=== PATIENT | female | born 1995 | race Caucasian/White ===

== ENCOUNTER 2018-08-06 09:28 | Outpatient (CLI) | payer OTHER, SELFPAY ==
[2018-08-06 11:12] LABS: HCT 37.9 % (36.0-46.0); HGB 12.6 g/dL (12.0-15.5); Mean Corp. HGB Concentration 33.2 g/dL (32.0-36.0); Mean Corpuscular Hemoglobin 28.1 pg (27.0-33.0); Mean Corpuscular Volume 84.6 fL (80-95); Mean Platelet Volume 10.3 fL (8.0-11.0); Platelet Count 284 x1000/uL (130-400); RBC 4.48 m/cumm (4.00-5.20); RBC Distribution Width 12.9 % (11.7-14.6); White Blood Cell Count 5.77 k/cumm (4.4-10.8)
[2018-08-06 11:34] LABS: TSH (W/Ref FT4) 2.48 uIU/mL (0.358-3.74)
== END 2018-08-06 09:48 ==
PROVIDERS: PCP Family Medicine; Visit Provider Family Medicine
DX: R53.83 Other fatigue (principal)
CPT/HCPCS: 36415; 85027; 84443

== ENCOUNTER 2019-06-18 08:21 | Outpatient (CLI) | payer OTHER, SELFPAY ==
[2019-06-18 11:23] LABS: HCT 40.1 % (36.0-46.0); HGB 13.1 g/dL (12.0-15.5); Mean Corp. HGB Concentration 32.7 g/dL (32.0-36.0); Mean Corpuscular Hemoglobin 27.8 pg (27.0-33.0); Mean Corpuscular Volume 85.1 fL (80-95); Mean Platelet Volume 10.2 fL (8.0-11.0); Platelet Count 323 x1000/uL (130-400); RBC 4.71 m/cumm (4.00-5.20); RBC Distribution Width 13.5 % (11.7-14.6); White Blood Cell Count 6.64 k/cumm (4.4-10.8)
[2019-06-18 11:34] LABS: Mono Screening Negative (Negative)
[2019-06-18 12:09] LABS: Iron 73 ug/dL (50-175); Total Iron Binding Capacity 328 ug/dL (250-450); Transferrin Sat 22 % (15-50)
[2019-06-18 12:32] LABS: Calculated LDL 109 mg/dL; Cholesterol 173 mg/dL (50-200); Ferritin 21 ng/mL (8-388); HDL Cholesterol 54 mg/dL (40-60); Triglyceride 52 mg/dL (30-150)
== END 2019-06-18 08:41 ==
PROVIDERS: PCP Family Medicine; Visit Provider Family Medicine
DX: E78.5 Hyperlipidemia, unspecified (principal); R42 Dizziness and giddiness; R53.83 Other fatigue
CPT/HCPCS: 36415; 80061; 83721; 85027; 82728; 83540; 83550; 86308

== ENCOUNTER 2019-06-18 11:36 | Outpatient (REF) | payer OTHER, SELFPAY ==
[2019-06-19 14:47] LABS: Chlamydia Result Negative; GC Result Negative; Specimen Description URINE
== END 2019-06-18 11:56 ==
LOC: LBN 11:36
PROVIDERS: PCP Family Medicine; Visit Provider Nurse Practitioner Women's Health
DX: Z11.3 Encounter for screening for infections with a predominantly sexual mode of transmission (principal)
CPT/HCPCS: 87491; 87591

== ENCOUNTER 2019-12-02 15:13 | Outpatient (REF) | payer OTHER, SELFPAY ==
[2019-12-03 14:43] LABS: Chlamydia Result Negative (Negative); GC Result Negative (Negative)
== END 2019-12-02 15:33 ==
LOC: LBN 15:13
PROVIDERS: PCP Family Medicine; Visit Provider Nurse Practitioner Women's Health
DX: Z11.3 Encounter for screening for infections with a predominantly sexual mode of transmission (principal)
CPT/HCPCS: 87491; 87591

== ENCOUNTER 2021-02-01 13:46 | Outpatient (REF) | payer OTHER, SELFPAY ==
--- NOTE | 2021-02-01 13:10 | PAPFT_PTH ---
PATIENT: Familia Garg LOC: [facility] U#:[id number] AGE/SX: 25/F ROOM: RE02/01/[address]: Diandra Faustin NP : 1995 BED: DIS: 02/01/2021 SPEC #: [id number] RECD: 02/01/21 17:42 STATUS: TASHA BARNHART #: [id number] JAMES: 02/01/21 13:[address]: Diandra Faustin NP DEPT: [facility] Cytology RECD BY: Ara Celaya ENTERED: 02/01/21 17:42 SP TYPE: PAPFT OTHR DR: Refugio Marie MD Tissues: 1 - CX/ENDOCX FOR PAP SMEARS Procedures: PAP THIN PREP/[facility] Screening Comments: [id number]
== END 2021-02-01 13:47 | disposition home or self-care (01) ==
LOC: LBN 13:46
PROVIDERS: PCP Family Medicine; Visit Provider Nurse Practitioner Women's Health
DX: Z12.4 Encounter for screening for malignant neoplasm of cervix (principal); R87.612 Low grade squamous intraepithelial lesion on cytologic smear of cervix (LGSIL)
CPT/HCPCS: 88142